=== PATIENT | female | born 1970 | race Native Hawaiian/Other Pacific Islander ===

== ENCOUNTER 2016-10-06 06:56 | Emergency (ER) | payer OTHER ==
[~2016-10-06] VITALS: Ht 165.1 cm; Wt 63.5 kg
[2016-10-06] MEDS ORDERED: ATOM40CA PO (07:37)
[2016-10-06] MEDS ORDERED: PROP60CA8 PO (07:37)
[2016-10-06] MEDS ORDERED: LEVE500T81 PO (07:37)
[2016-10-06] MEDS ORDERED: ALPR0.254 PO (07:37)
[2016-10-06] MEDS ORDERED: TOPI50CA PO (07:37)
[2016-10-06] MEDS ORDERED: TRAM100T37 PO (07:37)
[2016-10-06] MEDS ORDERED: IBU800T PO (07:37)
[2016-10-06] MEDS ORDERED: ALPR0.5T7 PO (07:37)
[2016-10-06] MEDS ORDERED: BACL10TA PO (07:37)
[2016-10-06] MEDS ORDERED: HYDR200T36 PO (07:37)
[2016-10-06] MEDS ORDERED: TEMA30CA PO (07:37)
[2016-10-06] MEDS ORDERED: CARB200T4 PO (07:37)
[2016-10-06] MEDS ORDERED: SODIUM CHLORIDE 0.9% 1,000 ML IV ONE (07:41)
[2016-10-06 07:45] LABS: Basophils # (auto) 0 uL; Basophils % (auto) 0.3 % (0.0-2.0); Eosinophils # (auto) 0.1 uL; Hematocrit 40.6 % (36.0-46.0); Hemoglobin 13.5 g/dL (12.2-16.2); Lymphocytes # (auto) 2.6 uL; Lymphocytes % (auto) 48.5 % (10.0-50.0); Mean Corpuscular Hemoglobin 31.3 pg (28.0-32.0); Mean Corpuscular Hgb Conc. 33.3 g/dL (32.0-36.0); Mean Corpuscular Volume 94.1 fL (80.0-100.0); Mean Platelet Volume 8.7 fL (7.4-10.4); Monocytes # (auto) 0.3 uL; Monocytes % (auto) 6.5 % (0.0-12.0); Neutrophils # (auto) 2.3 uL; Neutrophils % (auto) 42.7 % (37.0-80.0); Platelet Count (auto) 321 10^3/uL (140-450); Red Cell Distribution Width 12.6 % (11.6-16.0); White Blood Cell 5.3 10^3/uL (4.4-10.8)
[2016-10-06 08:15] LABS: Albumin 3.7 g/dL (3.4-5.0); BUN/Creatinine Ratio 22.1; Bilirubin, Total 0.2 mg/dL (0.2-1.0); Calcium 8.7 mg/dL (8.5-10.1); Potassium 3.6 mmol/L (3.5-5.1)
[2016-10-06 08:40] LABS: Urine RBC None Seen /hpf (0 - 4)
[2016-10-06 08:46] LABS: Urine Bilirubin Negative (Negative); Urine Blood Negative /uL (Negative); Urine Color Yellow (Yellow); Urine Glucose Normal (Normal); Urine Ketone Negative (Negative); Urine Nitrite Negative (Negative); Urine Squamous Epithelial Cell FEW /hpf (<5); Urine Urobilinogen Normal (Negative); Urine pH 6.5 (5.0-8.0)
[2016-10-06 09:53] VITALS: BP 137/64
== END 2016-10-06 09:54 | disposition home or self-care (01) ==
LOC: ER 06:56
DX: G45.9 Transient cerebral ischemic attack, unspecified (principal); F41.9 Anxiety disorder, unspecified; F43.10 Post-traumatic stress disorder, unspecified; M79.7 Fibromyalgia; Z72.0 Tobacco use; M32.9 Systemic lupus erythematosus, unspecified
CPT/HCPCS: 36415; 70450; 71010; 80053; 81001; 84484; 85025; 96360; 99285; J7030

== ENCOUNTER 2020-04-04 10:12 | Emergency (ER) | payer OTHER ==
[~2020-04-04] VITALS: Ht 165.1 cm; Wt 53.1 kg
[~2020-04-04 10:12] MED LIST: ALPR0.254 PO; ALPR0.5T7 PO; ATOM40CA PO; BACL10TA PO; CARB200T4 PO; HYDR200T36 PO; IBUP800T24 PO; LEVE1TAB46 PO; PROP60CA34 PO; TEMA30CA PO; TOPI1CAP22 PO; TRAM100T37 PO
[2020-04-04] MEDS ORDERED: SODIUM CHLORIDE 0.9% 500 ML IV ONE (10:26)
[2020-04-04 11:19] LABS: Basophils # (auto) 0 10 ^3/uL (0-0.2); Basophils % (auto) 0.5 % (0.0-2.0); Eosinophils # (auto) 0 10 ^3/uL (0-0.8); Eosinophils % (auto) 0.6 % (0.0-7.0); Hemoglobin 13.8 g/dL (12.2-16.2); Lymphocytes # (auto) 1.6 10 ^3/uL (0.4-5.4); Lymphocytes % (auto) 33.1 % (10.0-50.0); Mean Corpuscular Hemoglobin 31.3 pg (28.0-32.0); Mean Corpuscular Hgb Conc. 32.8 g/dL (32.0-36.0); Mean Corpuscular Volume 95.3 fL (80.0-100.0); Monocytes # (auto) 0.4 10 ^3/uL (0-1.3); Monocytes % (auto) 7.8 % (0.0-12.0); Neutrophils # (auto) 2.8 10 ^3/uL (1.6-8.6); Platelet Count (auto) 205 10^3/uL (140-450); Red Cell Distribution Width 12.4 % (11.8-14.3); White Blood Cell 4.8 10^3/uL (4.4-10.8)
[2020-04-04 11:33] LABS: Albumin 3.8 g/dL (3.4-5.0); Anion Gap 2 (5-15); Blood Alcohol < 3.0 mg/dL (0-5); Blood Urea Nitrogen 19 mg/dL (7-18); Calcium 8.5 mg/dL (8.5-10.1); Carbon Dioxide 28 mmol/L (21-32); Chloride 110 mmol/L (98-107); Glucose 81 mg/dL (74-106); Magnesium 2.4 mg/dL (1.6-2.6); Potassium 4.1 mmol/L (3.5-5.1); Sodium 140 mmol/L (136-145)
[2020-04-04 11:39] LABS: Alanine Aminotransferase 16 U/L (13-56); Alkaline Phosphatase 90 U/L (45-117); Aspartate Aminotransferase 10 U/L (15-37); BUN/Creatinine Ratio 23.5; Bilirubin, Total 0.2 mg/dL (0.2-1.0); GFR African American 96 mL/min; GFR Non-African American 79 mL/min
[2020-04-04 14:00] VITALS: BP 107/64
== END 2020-04-04 14:15 | disposition home or self-care (01) ==
LOC: EDBD 10:12 → ER 10:12
DX: R55 Syncope and collapse (principal); R53.1 Weakness; F17.210 Nicotine dependence, cigarettes, uncomplicated; F12.10 Cannabis abuse, uncomplicated; Z86.73 Personal history of transient ischemic attack (TIA), and cerebral infarction without residual deficits; Z90.710 Acquired absence of both cervix and uterus; Z90.89 Acquired absence of other organs
CPT/HCPCS: 36415; 70450; 80053; 80156; 80320; 82962; 83735; 84484; 85025; 93005; 96360; 99285; J7040